=== PATIENT | male | born 1995 ===

== ENCOUNTER 2018-11-06 02:20 | Emergency (ER) | payer SELFPAY ==
[2018-11-06 03:14] LABS: ANION GAP 15.7; CHLORIDE,CL 103 mmol/L (101-111); SODIUM,NA 137 mmol/L (135-145)
[2018-11-06] MEDS ORDERED: LORazepam 1 MG Tab PO ONE (04:40)
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
== END 2018-11-06 05:38 ==
LOC: DL.ED 02:20
DX: R00.0 Tachycardia, unspecified (principal); F19.10 Other psychoactive substance abuse, uncomplicated; V89.2XXA Person injured in unspecified motor-vehicle accident, traffic, initial encounter
CPT/HCPCS: 36415; 80053; 80305; 84484; 85025; 93005; 99284; A9270; G0480